=== PATIENT | female | born 1950 | race Caucasian/White ===

== ENCOUNTER 2017-04-30 08:19 | Day surgery (SDC) | payer MEDICARE, BC ==
[~2017-04-30 08:19] MED LIST: Lactated Ringers 1,000 ML IV SCH; Sodium Chloride 0.9% 10 ML Syringe FLUSH PRN
[2017-04-30] MEDS ORDERED: Midazolam 1 MG/ML 2 ML SDV ONE ×2 (09:40→09:42)
[2017-04-30] MEDS ORDERED: Propofol 200 MG/20 ML SDV ONE ×2 (09:40→09:42)
--- NOTE | 2017-04-30 10:06 | PCM.OPNOTE ---
- General Post-Op/Procedure Note Date of Surgery/Procedure: 04/30/17 Operative Procedure(s): Colonoscopy with polypectomy Findings: sig colon polyp Pre Op Diagnosis: Colon Screening Post-Op Diagnosis: Same Anesthesia Technique: MAC Primary Surgeon: Matt Mcintyre Anesthesia Provider: April Moses Pathology: polyp EBL in mLs: 0 Complications: None Condition: Good
--- NOTE | 2017-04-30 10:09 | PCM.HPR ---
H & P Addendum review - H & P Addendum Review Date of Original H & P: 04/01/17 Date Reviewed: 04/30/17 Time Reviewed: 09:30 Patient was Examined: No Changes
--- NOTE | 2017-04-30 16:53 | OR ---
Date of Procedure: 04/30/2017 PREOPERATIVE DIAGNOSIS: Colon screening. POSTOPERATIVE DIAGNOSIS: Sigmoid colon polyp. PROCEDURE: Colonoscopy with polypectomy. ANESTHESIA: IV sedation. PROCEDURE: The patient was brought to the procedure room, where she was placed on her left side and IV sedation administered. Digital rectal exam was performed which was normal. Colonoscope was inserted and advanced to the level of the cecum without difficulty. Cecal position was confirmed by identifying the appendiceal lumen and ileocecal valve. Prep was good and surfaces were well visualized. Upon withdrawing the scope, the ascending, transverse, and descending colon were normal in appearance. Sigmoid colon had an 8 mm sessile polyp, located at 30 cm from the anal verge that was removed with the cautery snare and retrieved in the polyp trap. The rectum was normal and retroflexion was normal. Air was removed and the scope withdrawn. The patient tolerated the procedure well and returned to recovery in a stable condition. The patient will follow up with Tiffany Ignacio in 1 week for review of pathology report. If the polyp is adenomatous, she should undergo a repeat colonoscopy again in 3 years. If the polyp is hyperplastic, she could wait 10 years until her next colon screening. RODNEY BROOKE MD /[id number]
== END 2017-04-30 11:28 | disposition home or self-care (01) ==
LOC: LL.SDS 08:19
PROVIDERS: ATTEND Surgery
DX: Z12.11 Encounter for screening for malignant neoplasm of colon (principal); D12.5 Benign neoplasm of sigmoid colon; Z88.0 Allergy status to penicillin; E78.5 Hyperlipidemia, unspecified; Z88.2 Allergy status to sulfonamides; Z91.018 Allergy to other foods; Z98.84 Bariatric surgery status; Z79.82 Long term (current) use of aspirin; Z79.899 Other long term (current) drug therapy
CPT/HCPCS: 45385; J2250; J2704; J7120; 00810-QZ; 88305